=== PATIENT | male | born 1985 | race Caucasian/White ===

== ENCOUNTER 2024-04-06 10:12 | Emergency (ER) | payer OTHER ==
[2024-04-06 10:19] VITALS: BP 130/72; PULSE 78; RESP 20; TEMP 98.2; BMI 28.3
[2024-04-06] MEDS ORDERED: DIPHTH,PERTUSS(ACELL),TET 0.5 ML DISP.SYRIN IM ONE (10:46)
[2024-04-06] MEDS: DIPHTH,PERTUSS(ACELL),TET 0.5 ML DISP.SYRIN IM ONE (10:52)
[2024-04-06] MEDS ORDERED: ceFAZolin SODIUM 1 GM VIAL ONE (12:55)
[2024-04-06] MEDS ORDERED: CEFTRIAXONE 1 GM/50 ML BAG ONE (13:08)
[2024-04-06] MEDS ORDERED: KETOROLAC TROMETHAMINE 30 MG/1 ML VIAL ONE (13:09)
[2024-04-06] MEDS: KETOROLAC TROMETHAMINE 30 MG/1 ML VIAL IVPUSH ONE (13:21)
[2024-04-06] MEDS: CEFAZOLIN 1 GM in DEXTROSE 5%-WATER - 50 ML IVPB ONE (13:21)
== END 2024-04-06 14:15 | disposition home or self-care (01) ==
LOC: JERFT 10:12
PROC: 0HQQXZZ Repair Finger Nail, External Approach (ICD-10-PCS; principal; 2024-04-06)
PROC: 3E03329 Introduction of Other Anti-infective into Peripheral Vein, Percutaneous Approach (ICD-10-PCS; 2024-04-06)
PROC: 3E0333Z Introduction of Anti-inflammatory into Peripheral Vein, Percutaneous Approach (ICD-10-PCS; 2024-04-06)
PROC: 3E0234Z Introduction of Serum, Toxoid and Vaccine into Muscle, Percutaneous Approach (ICD-10-PCS; 2024-04-06)
DX: S62.630B Displaced fracture of distal phalanx of right index finger, initial encounter for open fracture (principal); W22.8XXA Striking against or struck by other objects, initial encounter; Y99.0 Civilian activity done for income or pay; Z23 Encounter for immunization
CPT/HCPCS: 73140-TC-RT-FY; 90715; 99284-25